=== PATIENT | male | born 1950 | race Caucasian/White ===

== ENCOUNTER 2021-04-21 09:12 | Emergency (ER) | payer SELFPAY ==
[~2021-04-21] VITALS: Ht 180.3 cm; Wt 91.3 kg
[2021-04-21 10:02] LABS: BASOPHILS % (AUTO) 0.8 % (0-1); EOSINOPHILS # (AUTO) 0.1 X10'3 (0-0.9); EOSINOPHILS % (AUTO) 1.1 % (0-6); HEMATOCRIT 47.7 % (42.0-52.0); HEMOGLOBIN 16.6 g/dl (14.0-17.9); LYMPHOCYTES # (AUTO) 1.8 X10'3 (1.1-4.8); LYMPHOCYTES % (AUTO) 33.5 % (21-51); MEAN CORPUSCULAR HEMOGLOBIN 31.9 PG (27.0-31.0); MEAN CORPUSCULAR HGB CONC 34.7 g/dL (33.0-36.5); MEAN CORPUSCULAR VOLUME 91.8 FL (78-98); MEAN PLATELET VOLUME 7.9 FL (7.4-10.4); MONOCYTES # (AUTO) 0.6 X10'3 (0-0.9); MONOCYTES % (AUTO) 11.3 % (2-12); NEUTROPHILS # (AUTO) 2.8 X10'3 (1.8-7.7); NEUTROPHILS % (AUTO) 53.3 % (42-75); PLATELET COUNT 157 X10'3 (140-440); RED CELL DISTRIBUTION WIDTH 14.3 % (11.5-14.5); WHITE BLOOD COUNT 5.3 X10'3 (4.5-11.0)
[2021-04-21 10:11] LABS: ALANINE AMINOTRANSFERASE 30 U/L (12-78); ALBUMIN 3.8 G/DL (3.4-5.0); ALBUMIN/GLOBULIN RATIO 1.2 (1.1-1.5); ALKALINE PHOSPHATASE 57 IU/L (46-116); ANION GAP 9 (8-16); ASPARTATE AMINO TRANSFERASE 27 U/L (10-37); BILIRUBIN,TOTAL 0.7 MG/DL (0.1-1.0); BLOOD UREA NITROGEN 15 MG/DL (7-18); BUN/CREATININE RATIO 12.6 (5.4-32.0); CHLORIDE 104 MMOL/L (99-107); CREATININE 1.19 MG/DL (0.60-1.10); GLUCOSE 84 MG/DL (70-104); POTASSIUM 4.1 MMOL/L (3.5-5.1); SODIUM 142 MMOL/L (135-145); TOTAL CARBON DIOXIDE 29.5 MMOL/L (24-32); eGFR 61 ML/MIN
[2021-04-21 11:04] LABS: D-DIMER < 0.19 MG/L FEU (0-0.50)
[2021-04-21 11:12] VITALS: BP 122/83
== END 2021-04-21 12:15 | disposition home or self-care (01) ==
LOC: ER 09:13
DX: R07.89 Other chest pain (principal); R06.02 Shortness of breath; Z86.718 Personal history of other venous thrombosis and embolism; Z72.89 Other problems related to lifestyle; Z98.890 Other specified postprocedural states
CPT/HCPCS: 36415; 71045; 80053; 83880; 84484; 85025; 85379; 93005; 99285

== ENCOUNTER 2022-02-08 21:19 | Emergency (ER) | payer MEDICARE ==
[~2022-02-08] VITALS: Ht 180.3 cm; Wt 83.5 kg
[2022-02-08 21:33] VITALS: BP 114/83
[2022-02-08 22:02] LABS: BASOPHILS # (AUTO) 0.2 X10'3 (0-0.2); BASOPHILS % (AUTO) 1.2 % (0-1); EOSINOPHILS # (AUTO) 0.2 X10'3 (0-0.9); EOSINOPHILS % (AUTO) 1.8 % (0-6); HEMATOCRIT 43.2 % (42.0-52.0); HEMOGLOBIN 14.3 g/dl (14.0-17.9); LYMPHOCYTES # (AUTO) 1.9 X10'3 (1.1-4.8); LYMPHOCYTES % (AUTO) 13.9 % (21-51); MEAN CORPUSCULAR HEMOGLOBIN 30.1 PG (27.0-31.0); MEAN CORPUSCULAR HGB CONC 33.1 g/dL (33.0-36.5); MEAN CORPUSCULAR VOLUME 90.9 FL (78-98); MEAN PLATELET VOLUME 7.7 FL (7.4-10.4); MONOCYTES # (AUTO) 1.4 X10'3 (0-0.9); MONOCYTES % (AUTO) 10.2 % (2-12); NEUTROPHILS # (AUTO) 9.9 X10'3 (1.8-7.7); NEUTROPHILS % (AUTO) 72.9 % (42-75); PLATELET COUNT 575 X10'3 (140-440); RED BLOOD COUNT 4.75 X10'6 (4.70-6.10); RED CELL DISTRIBUTION WIDTH 13.6 % (11.5-14.5); WHITE BLOOD COUNT 13.6 X10'3 (4.5-11.0)
[2022-02-08 22:16] LABS: ALANINE AMINOTRANSFERASE 102 U/L (12-78); ALBUMIN 2.9 G/DL (3.4-5.0); ALBUMIN/GLOBULIN RATIO 0.6 (1.1-1.5); ALKALINE PHOSPHATASE 265 IU/L (46-116); ANION GAP 10 (8-16); ASPARTATE AMINO TRANSFERASE 40 U/L (10-37); BILIRUBIN,TOTAL 0.9 MG/DL (0.1-1.0); BLOOD UREA NITROGEN 22 MG/DL (7-18); BUN/CREATININE RATIO 17.7 (5.4-32.0); CALCIUM 9.3 MG/DL (8.5-10.1); CHLORIDE 98 MMOL/L (99-107); CREATININE 1.24 MG/DL (0.60-1.10); GLUCOSE 101 MG/DL (70-104); LIPASE 268 U/L (73-393); POTASSIUM 4.2 MMOL/L (3.5-5.1); SODIUM 135 MMOL/L (135-145); TOTAL CARBON DIOXIDE 27.2 MMOL/L (24-32); TOTAL PROTEIN 7.7 G/DL (6.4-8.2); eGFR 58 ML/MIN
[2022-02-09] MEDS ORDERED: DUTA0.5C40 PO (14:58)
[2022-02-09] MEDS ORDERED: ESOM40CA54 PO (14:58)
[2022-02-09] MEDS ORDERED: TEST200V33 IM (14:58)
[2022-02-09] MEDS ORDERED: ZOLP10TA PO (15:06)
[2022-02-09] MEDS ORDERED: AMOX-117 PO (15:06)
[2022-02-09] MEDS ORDERED: TADA5TAB13 PO (15:06)
[2022-02-09] MEDS ORDERED: OXYC1TAB17 PO (15:06)
[2022-02-09] MEDS ORDERED: WARF3TAB56 PO (15:06)
[2022-02-09] MEDS ORDERED: PANT40TA54 PO (17:51)
[2022-02-09] MEDS ORDERED: ACET-1995 PO (17:52)
[2022-02-09] MEDS ORDERED: SENN1TAB82 PO (17:53)
[2022-02-09] MEDS ORDERED: [UNRECOGNIZED DRUG - CODE] SQ (17:54)
== END 2022-02-09 00:53 | disposition left against medical advice (07) ==
LOC: ER 21:20
DX: R50.9 Fever, unspecified (principal); Z53.21 Procedure and treatment not carried out due to patient leaving prior to being seen by health care provider
CPT/HCPCS: 36415; 80053; 83605; 83690; 84145; 85025; 87040

== ENCOUNTER 2022-03-09 08:27 | Outpatient (CLI) | payer MEDICARE ==
[~2022-03-09 08:27] MED LIST: ACET-1995 PO; CIPR-259 PO; DUTA0.5C40 PO; OXYC1TAB17 PO; PANT40TA54 PO; SENN1TAB82 PO; TADA5TAB13 PO; TEST200V33 IM; WARF3TAB56 PO; ZOLP10TA PO; [UNRECOGNIZED DRUG - CODE] SQ
[2022-03-09] MEDS ORDERED: iohexol 300mg/ml 100ml inj. ONE (08:41)
== END 2022-03-09 23:59 | disposition home or self-care (01) ==
LOC: RAD 08:27
PROVIDERS: ATTEND Internal Medicine Infectious Disease
DX: K76.89 Other specified diseases of liver (principal); K65.1 Peritoneal abscess
CPT/HCPCS: 74177; J3490; Q9967